=== PATIENT | male | born 1980 | race Caucasian/White ===

== ENCOUNTER → 2016-06-15 | Outpatient (CLI) | payer BC ==
--- NOTE | 2016-06-15 16:33 | KCIC ---
PROCEDURE Chest, two views. HISTORY Chest tightness. FINDINGS Frontal and lateral views of the chest are obtained. There is no infiltrate, effusion or pneumothorax. The heart is normal in size. IMPRESSION No acute pulmonary finding. Electronically signed by: Shweta Felton (Jun 15, 2016 16:31:54)
== END | disposition home or self-care (01) ==
LOC: KCIC 16:07
PROVIDERS: ATTEND Physician Assistant Medical
DX: R07.89 Other chest pain (principal); R12 Heartburn
CPT/HCPCS: 71020